=== PATIENT | male | born 1970 | race Caucasian/White ===

== ENCOUNTER 2018-07-12 01:36 | Day surgery (SDC) | payer OTHER | END 2018-07-12 22:38 | disposition home or self-care (01) | LOC: WOUND 01:36 | DX: L97.822 Non-pressure chronic ulcer of other part of left lower leg with fat layer exposed (principal); I87.2 Venous insufficiency (chronic) (peripheral); I10 Essential (primary) hypertension; E66.9 Obesity, unspecified ==

== ENCOUNTER 2018-07-14 00:21 | Day surgery (SDC) | payer OTHER | END 2018-07-14 22:49 | disposition home or self-care (01) | LOC: WOUND 00:21 | PROC: 2W1RX6Z Compression of Left Lower Leg using Pressure Dressing (ICD-10-PCS; principal; 2018-07-14) | DX: L97.822 Non-pressure chronic ulcer of other part of left lower leg with fat layer exposed (principal); I87.2 Venous insufficiency (chronic) (peripheral); I82.492 Acute embolism and thrombosis of other specified deep vein of left lower extremity ==

== ENCOUNTER 2018-07-19 00:17 | Day surgery (SDC) | payer OTHER | END 2018-07-19 22:43 | disposition home or self-care (01) | LOC: WOUND 00:17 | DX: L97.822 Non-pressure chronic ulcer of other part of left lower leg with fat layer exposed (principal); I87.2 Venous insufficiency (chronic) (peripheral); I10 Essential (primary) hypertension | CPT/HCPCS: G0463 ==

== ENCOUNTER 2018-08-02 10:00 | Day surgery (SDC) | payer OTHER | END 2018-08-02 22:39 | disposition home or self-care (01) | LOC: WOUND 10:00 | DX: L97.822 Non-pressure chronic ulcer of other part of left lower leg with fat layer exposed (principal); I87.2 Venous insufficiency (chronic) (peripheral); I82.492 Acute embolism and thrombosis of other specified deep vein of left lower extremity; I10 Essential (primary) hypertension; E66.9 Obesity, unspecified | CPT/HCPCS: G0463 ==

== ENCOUNTER 2018-08-09 09:55 | Day surgery (SDC) | payer OTHER | END 2018-08-09 23:00 | disposition home or self-care (01) | LOC: WOUND 09:55 | DX: L97.822 Non-pressure chronic ulcer of other part of left lower leg with fat layer exposed (principal); I87.2 Venous insufficiency (chronic) (peripheral); I82.492 Acute embolism and thrombosis of other specified deep vein of left lower extremity; E66.9 Obesity, unspecified; I10 Essential (primary) hypertension ==

== ENCOUNTER 2018-08-16 10:01 | Day surgery (SDC) | payer OTHER | END 2018-08-16 22:41 | disposition home or self-care (01) | LOC: WOUND 10:01 | PROC: 0HBLXZZ Excision of Left Lower Leg Skin, External Approach (ICD-10-PCS; principal; 2018-08-16) | DX: L97.822 Non-pressure chronic ulcer of other part of left lower leg with fat layer exposed (principal); I87.2 Venous insufficiency (chronic) (peripheral) ==

== ENCOUNTER 2018-08-23 10:04 | Day surgery (SDC) | payer OTHER | END 2018-08-23 22:51 | disposition home or self-care (01) | LOC: WOUND 10:04 | DX: L97.822 Non-pressure chronic ulcer of other part of left lower leg with fat layer exposed (principal); I87.2 Venous insufficiency (chronic) (peripheral); I82.492 Acute embolism and thrombosis of other specified deep vein of left lower extremity; I10 Essential (primary) hypertension; E66.9 Obesity, unspecified; Z87.891 Personal history of nicotine dependence ==

== ENCOUNTER 2018-08-31 13:44 | Day surgery (SDC) | payer OTHER | END 2018-08-31 22:42 | disposition home or self-care (01) | LOC: WOUND 13:44 | PROC: 0HBLXZZ Excision of Left Lower Leg Skin, External Approach (ICD-10-PCS; principal; 2018-08-31) | DX: L97.822 Non-pressure chronic ulcer of other part of left lower leg with fat layer exposed (principal); I87.2 Venous insufficiency (chronic) (peripheral) ==

== ENCOUNTER 2018-09-13 00:30 | Day surgery (SDC) | payer OTHER | END 2018-09-13 23:00 | disposition home or self-care (01) | LOC: WOUND 00:30 | DX: L97.822 Non-pressure chronic ulcer of other part of left lower leg with fat layer exposed (principal); I87.2 Venous insufficiency (chronic) (peripheral); I82.492 Acute embolism and thrombosis of other specified deep vein of left lower extremity; I10 Essential (primary) hypertension; E66.9 Obesity, unspecified ==

== ENCOUNTER 2018-09-15 10:45 | Day surgery (SDC) | payer OTHER | END 2018-09-15 22:38 | disposition home or self-care (01) | LOC: WOUND 10:45 | DX: L97.822 Non-pressure chronic ulcer of other part of left lower leg with fat layer exposed (principal); I87.2 Venous insufficiency (chronic) (peripheral); I82.492 Acute embolism and thrombosis of other specified deep vein of left lower extremity; I10 Essential (primary) hypertension; E66.9 Obesity, unspecified ==

== ENCOUNTER 2018-10-04 00:47 | Day surgery (SDC) | payer OTHER | END 2018-10-04 22:50 | disposition home or self-care (01) | LOC: WOUND 00:47 | DX: L97.822 Non-pressure chronic ulcer of other part of left lower leg with fat layer exposed (principal); I87.2 Venous insufficiency (chronic) (peripheral); I82.492 Acute embolism and thrombosis of other specified deep vein of left lower extremity; I10 Essential (primary) hypertension; E66.9 Obesity, unspecified ==

== ENCOUNTER 2018-10-11 10:22 | Day surgery (SDC) | payer OTHER | END 2018-10-11 22:40 | disposition home or self-care (01) | LOC: WOUND 10:22 | DX: L97.822 Non-pressure chronic ulcer of other part of left lower leg with fat layer exposed (principal); I82.492 Acute embolism and thrombosis of other specified deep vein of left lower extremity; I87.2 Venous insufficiency (chronic) (peripheral); I10 Essential (primary) hypertension; E66.9 Obesity, unspecified; Z87.891 Personal history of nicotine dependence | CPT/HCPCS: G0463 ==

== ENCOUNTER 2018-10-14 00:28 | Day surgery (SDC) | payer OTHER | END 2018-10-14 12:00 | disposition home or self-care (01) | LOC: WOUND 00:28 | DX: L97.822 Non-pressure chronic ulcer of other part of left lower leg with fat layer exposed (principal); I87.2 Venous insufficiency (chronic) (peripheral); I82.492 Acute embolism and thrombosis of other specified deep vein of left lower extremity; I10 Essential (primary) hypertension; E66.9 Obesity, unspecified; F17.210 Nicotine dependence, cigarettes, uncomplicated; Z68.42 Body mass index [BMI] 45.0-49.9, adult | CPT/HCPCS: G0463 ==

== ENCOUNTER 2018-10-18 10:30 | Day surgery (SDC) | payer OTHER | END 2018-10-18 22:47 | disposition home or self-care (01) | LOC: WOUND 10:30 | DX: L97.822 Non-pressure chronic ulcer of other part of left lower leg with fat layer exposed (principal); I87.2 Venous insufficiency (chronic) (peripheral); I82.492 Acute embolism and thrombosis of other specified deep vein of left lower extremity; I10 Essential (primary) hypertension | CPT/HCPCS: G0463 ==

== ENCOUNTER 2018-10-25 00:12 | Day surgery (SDC) | payer OTHER | END 2018-10-25 23:05 | disposition home or self-care (01) | LOC: WOUND 00:12 | DX: I87.2 Venous insufficiency (chronic) (peripheral) (principal); L97.822 Non-pressure chronic ulcer of other part of left lower leg with fat layer exposed; I82.492 Acute embolism and thrombosis of other specified deep vein of left lower extremity; I10 Essential (primary) hypertension; E66.9 Obesity, unspecified; Z87.891 Personal history of nicotine dependence; Z79.899 Other long term (current) drug therapy; Z68.42 Body mass index [BMI] 45.0-49.9, adult | CPT/HCPCS: G0463 ==

== ENCOUNTER 2018-11-01 00:19 | Day surgery (SDC) | payer OTHER | END 2018-11-01 22:45 | disposition home or self-care (01) | LOC: WOUND 00:19 | DX: L97.822 Non-pressure chronic ulcer of other part of left lower leg with fat layer exposed (principal); I82.492 Acute embolism and thrombosis of other specified deep vein of left lower extremity; I87.2 Venous insufficiency (chronic) (peripheral); I10 Essential (primary) hypertension; E66.9 Obesity, unspecified; Z87.891 Personal history of nicotine dependence; Z79.899 Other long term (current) drug therapy; Z68.42 Body mass index [BMI] 45.0-49.9, adult | CPT/HCPCS: G0463 ==

== ENCOUNTER 2018-11-08 10:20 | Day surgery (SDC) | payer OTHER | END 2018-11-08 22:45 | disposition home or self-care (01) | LOC: WOUND 10:20 | DX: I87.2 Venous insufficiency (chronic) (peripheral) (principal); L97.822 Non-pressure chronic ulcer of other part of left lower leg with fat layer exposed; I10 Essential (primary) hypertension; E66.9 Obesity, unspecified; Z87.891 Personal history of nicotine dependence; Z68.42 Body mass index [BMI] 45.0-49.9, adult | CPT/HCPCS: G0463 ==

== ENCOUNTER 2018-11-22 10:15 | Day surgery (SDC) | payer OTHER | END 2018-11-22 23:04 | disposition home or self-care (01) | LOC: WOUND 10:15 | DX: I87.2 Venous insufficiency (chronic) (peripheral) (principal); L97.221 Non-pressure chronic ulcer of left calf limited to breakdown of skin; L97.821 Non-pressure chronic ulcer of other part of left lower leg limited to breakdown of skin; I82.492 Acute embolism and thrombosis of other specified deep vein of left lower extremity; I10 Essential (primary) hypertension; E66.9 Obesity, unspecified; Z87.891 Personal history of nicotine dependence; Z86.718 Personal history of other venous thrombosis and embolism; Z68.41 Body mass index [BMI] 40.0-44.9, adult ==

== ENCOUNTER 2018-11-29 10:24 | Day surgery (SDC) | payer OTHER | END 2018-11-29 22:41 | disposition home or self-care (01) | LOC: WOUND 10:24 | DX: L97.821 Non-pressure chronic ulcer of other part of left lower leg limited to breakdown of skin (principal); I87.2 Venous insufficiency (chronic) (peripheral); I82.492 Acute embolism and thrombosis of other specified deep vein of left lower extremity; I10 Essential (primary) hypertension ==

== ENCOUNTER 2018-12-06 00:15 | Day surgery (SDC) | payer OTHER | END 2018-12-06 22:48 | disposition home or self-care (01) | LOC: WOUND 00:15 | DX: L97.821 Non-pressure chronic ulcer of other part of left lower leg limited to breakdown of skin (principal); I10 Essential (primary) hypertension; I87.2 Venous insufficiency (chronic) (peripheral); I82.492 Acute embolism and thrombosis of other specified deep vein of left lower extremity ==

== ENCOUNTER 2018-12-13 07:47 | Day surgery (SDC) | payer OTHER | END 2018-12-13 22:38 | disposition home or self-care (01) | LOC: WOUND 07:47 | DX: L97.822 Non-pressure chronic ulcer of other part of left lower leg with fat layer exposed (principal); I87.2 Venous insufficiency (chronic) (peripheral); I82.492 Acute embolism and thrombosis of other specified deep vein of left lower extremity; I10 Essential (primary) hypertension; E66.9 Obesity, unspecified; Z87.891 Personal history of nicotine dependence ==

== ENCOUNTER 2018-12-27 01:34 | Day surgery (SDC) | payer OTHER | END 2018-12-27 22:38 | disposition home or self-care (01) | LOC: WOUND 01:34 | DX: L97.821 Non-pressure chronic ulcer of other part of left lower leg limited to breakdown of skin (principal); I87.2 Venous insufficiency (chronic) (peripheral); I82.492 Acute embolism and thrombosis of other specified deep vein of left lower extremity; E66.9 Obesity, unspecified; Z87.891 Personal history of nicotine dependence ==

== ENCOUNTER 2019-01-10 10:19 | Day surgery (SDC) | payer OTHER ==
[2019-03-25] MEDS ORDERED: XARELTO20 MG PO (13:27)
== END 2019-01-10 23:09 | disposition home or self-care (01) ==
LOC: WOUND 10:19
DX: L97.821 Non-pressure chronic ulcer of other part of left lower leg limited to breakdown of skin (principal); I10 Essential (primary) hypertension; E66.9 Obesity, unspecified; I87.2 Venous insufficiency (chronic) (peripheral); Z87.891 Personal history of nicotine dependence
CPT/HCPCS: 87070; 87075; 87205

== ENCOUNTER 2019-01-17 10:22 | Day surgery (SDC) | payer OTHER ==
[2019-03-25] MEDS ORDERED: XARELTO20 MG PO (13:27)
== END 2019-01-17 22:38 | disposition home or self-care (01) ==
LOC: WOUND 10:22
DX: L97.821 Non-pressure chronic ulcer of other part of left lower leg limited to breakdown of skin (principal); I87.2 Venous insufficiency (chronic) (peripheral); I82.492 Acute embolism and thrombosis of other specified deep vein of left lower extremity; I10 Essential (primary) hypertension; E66.9 Obesity, unspecified; Z87.891 Personal history of nicotine dependence

== ENCOUNTER 2019-01-24 10:19 | Day surgery (SDC) | payer OTHER ==
[2019-03-25] MEDS ORDERED: XARELTO20 MG PO (13:27)
== END 2019-01-24 22:46 | disposition home or self-care (01) ==
LOC: WOUND
PROC: 0HDLXZZ Extraction of Left Lower Leg Skin, External Approach (ICD-10-PCS; principal; 2019-01-24)
DX: L97.821 Non-pressure chronic ulcer of other part of left lower leg limited to breakdown of skin (principal); I87.2 Venous insufficiency (chronic) (peripheral); I10 Essential (primary) hypertension; E66.9 Obesity, unspecified; Z87.891 Personal history of nicotine dependence; Z86.718 Personal history of other venous thrombosis and embolism

== ENCOUNTER 2019-01-31 10:17 | Day surgery (SDC) | payer OTHER ==
[2019-03-25] MEDS ORDERED: XARELTO20 MG PO (13:27)
== END 2019-01-31 22:59 | disposition home or self-care (01) ==
LOC: WOUND 10:17
PROC: 0HDLXZZ Extraction of Left Lower Leg Skin, External Approach (ICD-10-PCS; principal; 2019-01-31)
DX: L97.821 Non-pressure chronic ulcer of other part of left lower leg limited to breakdown of skin (principal); I82.492 Acute embolism and thrombosis of other specified deep vein of left lower extremity; I10 Essential (primary) hypertension; E66.9 Obesity, unspecified; Z87.891 Personal history of nicotine dependence; Z86.14 Personal history of Methicillin resistant Staphylococcus aureus infection

== ENCOUNTER 2019-02-07 10:19 | Day surgery (SDC) | payer OTHER ==
[2019-03-25] MEDS ORDERED: XARELTO20 MG PO (13:27)
== END 2019-02-07 22:41 | disposition home or self-care (01) ==
LOC: WOUND 10:19
DX: L97.822 Non-pressure chronic ulcer of other part of left lower leg with fat layer exposed (principal); I82.492 Acute embolism and thrombosis of other specified deep vein of left lower extremity; I87.2 Venous insufficiency (chronic) (peripheral); I10 Essential (primary) hypertension; E66.9 Obesity, unspecified; Z87.891 Personal history of nicotine dependence; Z68.42 Body mass index [BMI] 45.0-49.9, adult

== ENCOUNTER 2019-02-14 10:23 | Day surgery (SDC) | payer OTHER ==
[2019-03-25] MEDS ORDERED: XARELTO20 MG PO (13:27)
== END 2019-02-14 22:51 | disposition home or self-care (01) ==
LOC: WOUND 10:23
DX: L97.822 Non-pressure chronic ulcer of other part of left lower leg with fat layer exposed (principal); I10 Essential (primary) hypertension; I87.2 Venous insufficiency (chronic) (peripheral); I82.492 Acute embolism and thrombosis of other specified deep vein of left lower extremity; E66.9 Obesity, unspecified; Z87.891 Personal history of nicotine dependence; Z68.42 Body mass index [BMI] 45.0-49.9, adult
CPT/HCPCS: 87081; G0463

== ENCOUNTER 2019-02-21 10:30 | Day surgery (SDC) | payer OTHER ==
[2019-03-25] MEDS ORDERED: XARELTO20 MG PO (13:27)
== END 2019-02-21 22:57 | disposition home or self-care (01) ==
LOC: WOUND 10:30
DX: L97.821 Non-pressure chronic ulcer of other part of left lower leg limited to breakdown of skin (principal); I87.2 Venous insufficiency (chronic) (peripheral); I82.492 Acute embolism and thrombosis of other specified deep vein of left lower extremity; I10 Essential (primary) hypertension; E66.9 Obesity, unspecified; Z87.891 Personal history of nicotine dependence

== ENCOUNTER 2019-02-28 00:23 | Day surgery (SDC) | payer OTHER ==
[2019-03-25] MEDS ORDERED: XARELTO20 MG PO (13:27)
== END 2019-02-28 23:10 | disposition home or self-care (01) ==
LOC: WOUND 00:23
DX: L97.222 Non-pressure chronic ulcer of left calf with fat layer exposed (principal); I82.492 Acute embolism and thrombosis of other specified deep vein of left lower extremity; I87.2 Venous insufficiency (chronic) (peripheral); I10 Essential (primary) hypertension; E66.9 Obesity, unspecified; Z87.891 Personal history of nicotine dependence
CPT/HCPCS: G0463

== ENCOUNTER 2019-03-07 00:13 | Day surgery (SDC) | payer OTHER ==
[2019-03-25] MEDS ORDERED: XARELTO20 MG PO (13:27)
== END 2019-03-07 22:46 | disposition home or self-care (01) ==
LOC: WOUND 00:13
DX: L97.822 Non-pressure chronic ulcer of other part of left lower leg with fat layer exposed (principal); L97.811 Non-pressure chronic ulcer of other part of right lower leg limited to breakdown of skin; I82.492 Acute embolism and thrombosis of other specified deep vein of left lower extremity; I87.2 Venous insufficiency (chronic) (peripheral); I10 Essential (primary) hypertension; E66.9 Obesity, unspecified; Z87.891 Personal history of nicotine dependence
CPT/HCPCS: G0463

== ENCOUNTER 2019-03-14 00:24 | Day surgery (SDC) | payer OTHER ==
[2019-03-25] MEDS ORDERED: XARELTO20 MG PO (13:27)
== END 2019-03-14 22:50 | disposition home or self-care (01) ==
LOC: WOUND 00:24
DX: L97.822 Non-pressure chronic ulcer of other part of left lower leg with fat layer exposed (principal); L97.811 Non-pressure chronic ulcer of other part of right lower leg limited to breakdown of skin; I87.2 Venous insufficiency (chronic) (peripheral); I82.492 Acute embolism and thrombosis of other specified deep vein of left lower extremity; I10 Essential (primary) hypertension; E66.9 Obesity, unspecified; Z87.891 Personal history of nicotine dependence
CPT/HCPCS: 87071; 87075; 87205; G0463

== ENCOUNTER 2019-03-21 00:25 | Day surgery (SDC) | payer OTHER ==
[2019-03-25] MEDS ORDERED: XARELTO20 MG PO (13:27)
== END 2019-03-21 22:44 | disposition home or self-care (01) ==
LOC: WOUND 00:25
DX: L97.822 Non-pressure chronic ulcer of other part of left lower leg with fat layer exposed (principal); L97.811 Non-pressure chronic ulcer of other part of right lower leg limited to breakdown of skin; I82.492 Acute embolism and thrombosis of other specified deep vein of left lower extremity; I87.2 Venous insufficiency (chronic) (peripheral); I10 Essential (primary) hypertension; F17.210 Nicotine dependence, cigarettes, uncomplicated
CPT/HCPCS: G0463

== ENCOUNTER 2019-03-23 13:14 | Day surgery (SDC) | payer OTHER ==
[~2019-03-23] VITALS: Ht 188 cm; Wt 168.0 kg
[2019-03-23] MEDS ORDERED: LISI20 PO (15:12)
[2019-03-23] MEDS ORDERED: NEBI10 PO ×2 (15:13→15:14)
[2019-03-23] MEDS ORDERED: CHLO25B PO (15:15)
[2019-03-23] MEDS ORDERED: THERA1 EACH PO (15:16)
[2019-03-23] MEDS ORDERED: Bactrim Ds Tab1 EACH PO (15:16)
[2019-03-25] MEDS ORDERED: XARELTO20 MG PO (13:27)
== END 2019-03-23 22:40 | disposition home or self-care (01) ==
LOC: MHTC 13:14
DX: L97.829 Non-pressure chronic ulcer of other part of left lower leg with unspecified severity (principal); I87.2 Venous insufficiency (chronic) (peripheral)
CPT/HCPCS: 36470; 36471; 36475; 99152; 99153; C1769; C1888; C1894; J1644; J2250; J3010; J7040

== ENCOUNTER 2019-03-29 07:01 | Day surgery (SDC) | payer OTHER ==
[~2019-03-29] VITALS: Ht 188 cm; Wt 164.0 kg
[~2019-03-29 07:01] MED LIST: Bactrim Ds Tab1 EACH PO; CHLO25B PO; LISI20 PO; NEBI10 PO; THERA1 EACH PO; XARELTO20 MG PO
--- NOTE | 2019-03-29 07:36 | NUR ---
CALL LIGHT IN REACH.
--- NOTE | 2019-03-29 08:37 | NUR ---
PT TOLERATED WELL. RF CYCLES COMPLETED AT 119 DEGREES, 8 KAUR. TOTAL TX TIME: 4:00 12 RF CYCLES.
--- NOTE | 2019-03-29 09:07 | NUR ---
RIGHT LEG WRAPPED TO THIGH-HIGH WITH GAUZE, COBAN AND COMPRESSION STOCKING. PT DRINKING ORANGE JUICE.
--- NOTE | 2019-03-29 09:19 | NUR ---
DISCHARGE INSTRUCTIONS REVIEWED ALL QUESTIONS ANSWERED. 23 G IV DISCONTINUED FROM RIGHT HAND WITH INTACT CANNULA. PT ESCORTED OUT VIA WHEELCHAIR ESCORT.
== END 2019-03-29 22:43 | disposition home or self-care (01) ==
LOC: MHTC 07:01
DX: I87.2 Venous insufficiency (chronic) (peripheral) (principal); I83.019 Varicose veins of right lower extremity with ulcer of unspecified site; L97.919 Non-pressure chronic ulcer of unspecified part of right lower leg with unspecified severity
CPT/HCPCS: 36465; 36466; 36475; 99152; C1888; C1894; J1644; J2250; J3010; J7030; J7040

== ENCOUNTER 2019-04-11 00:15 | Day surgery (SDC) | payer OTHER | END 2019-04-11 22:53 | disposition home or self-care (01) | LOC: WOUND 00:15 | DX: I82.492 Acute embolism and thrombosis of other specified deep vein of left lower extremity (principal); L97.822 Non-pressure chronic ulcer of other part of left lower leg with fat layer exposed; L97.811 Non-pressure chronic ulcer of other part of right lower leg limited to breakdown of skin; I87.2 Venous insufficiency (chronic) (peripheral); I10 Essential (primary) hypertension; Z87.891 Personal history of nicotine dependence | CPT/HCPCS: G0463 ==

== ENCOUNTER 2019-04-18 10:20 | Day surgery (SDC) | payer OTHER | END 2019-04-18 23:07 | disposition home or self-care (01) | LOC: WOUND 10:20 | DX: L97.821 Non-pressure chronic ulcer of other part of left lower leg limited to breakdown of skin (principal); L97.811 Non-pressure chronic ulcer of other part of right lower leg limited to breakdown of skin; I10 Essential (primary) hypertension; E66.9 Obesity, unspecified; Z68.42 Body mass index [BMI] 45.0-49.9, adult; Z87.891 Personal history of nicotine dependence ==

== ENCOUNTER 2019-04-25 00:25 | Day surgery (SDC) | payer OTHER | END 2019-04-25 23:01 | disposition home or self-care (01) | LOC: WOUND 00:25 | DX: L97.821 Non-pressure chronic ulcer of other part of left lower leg limited to breakdown of skin (principal); L97.811 Non-pressure chronic ulcer of other part of right lower leg limited to breakdown of skin; I87.2 Venous insufficiency (chronic) (peripheral); I82.492 Acute embolism and thrombosis of other specified deep vein of left lower extremity; I10 Essential (primary) hypertension; E66.9 Obesity, unspecified; Z87.891 Personal history of nicotine dependence; Z68.42 Body mass index [BMI] 45.0-49.9, adult ==

== ENCOUNTER 2019-05-02 00:19 | Day surgery (SDC) | payer OTHER | END 2019-05-02 22:43 | disposition home or self-care (01) | LOC: WOUND 00:19 | DX: L97.821 Non-pressure chronic ulcer of other part of left lower leg limited to breakdown of skin (principal); L97.811 Non-pressure chronic ulcer of other part of right lower leg limited to breakdown of skin; I87.2 Venous insufficiency (chronic) (peripheral); I82.492 Acute embolism and thrombosis of other specified deep vein of left lower extremity; I10 Essential (primary) hypertension; E66.9 Obesity, unspecified; Z68.42 Body mass index [BMI] 45.0-49.9, adult; Z87.891 Personal history of nicotine dependence ==

== ENCOUNTER 2019-05-09 10:21 | Day surgery (SDC) | payer OTHER | END 2019-05-09 23:19 | disposition home or self-care (01) | LOC: WOUND 10:21 | DX: L97.822 Non-pressure chronic ulcer of other part of left lower leg with fat layer exposed (principal); L97.821 Non-pressure chronic ulcer of other part of left lower leg limited to breakdown of skin; L97.811 Non-pressure chronic ulcer of other part of right lower leg limited to breakdown of skin; I87.2 Venous insufficiency (chronic) (peripheral); I82.492 Acute embolism and thrombosis of other specified deep vein of left lower extremity; I10 Essential (primary) hypertension; E66.9 Obesity, unspecified; Z87.891 Personal history of nicotine dependence; Z68.42 Body mass index [BMI] 45.0-49.9, adult ==

== ENCOUNTER 2019-05-16 10:00 | Day surgery (SDC) | payer OTHER | END 2019-05-16 12:00 | disposition home or self-care (01) | LOC: WOUND 10:00 | DX: L97.822 Non-pressure chronic ulcer of other part of left lower leg with fat layer exposed (principal); L97.811 Non-pressure chronic ulcer of other part of right lower leg limited to breakdown of skin; I87.2 Venous insufficiency (chronic) (peripheral); I82.492 Acute embolism and thrombosis of other specified deep vein of left lower extremity; I10 Essential (primary) hypertension; E66.9 Obesity, unspecified; Z87.891 Personal history of nicotine dependence; Z68.42 Body mass index [BMI] 45.0-49.9, adult; Z79.899 Other long term (current) drug therapy ==

== ENCOUNTER 2019-05-23 00:26 | Day surgery (SDC) | payer OTHER | END 2019-05-23 22:45 | disposition home or self-care (01) | LOC: WOUND 00:26 | DX: L97.822 Non-pressure chronic ulcer of other part of left lower leg with fat layer exposed (principal); L97.812 Non-pressure chronic ulcer of other part of right lower leg with fat layer exposed; I87.2 Venous insufficiency (chronic) (peripheral); I82.492 Acute embolism and thrombosis of other specified deep vein of left lower extremity; I10 Essential (primary) hypertension; F17.210 Nicotine dependence, cigarettes, uncomplicated ==

== ENCOUNTER 2019-06-01 13:30 | Day surgery (SDC) | payer OTHER | END 2019-06-01 23:02 | disposition home or self-care (01) | LOC: WOUND 13:30 | DX: L97.822 Non-pressure chronic ulcer of other part of left lower leg with fat layer exposed (principal); L97.812 Non-pressure chronic ulcer of other part of right lower leg with fat layer exposed; I10 Essential (primary) hypertension; I82.492 Acute embolism and thrombosis of other specified deep vein of left lower extremity; I87.2 Venous insufficiency (chronic) (peripheral); Z87.891 Personal history of nicotine dependence | CPT/HCPCS: Q4186 ==

== ENCOUNTER 2019-06-06 10:04 | Day surgery (SDC) | payer OTHER | END 2019-06-06 22:41 | disposition home or self-care (01) | LOC: WOUND 10:04 | DX: L97.822 Non-pressure chronic ulcer of other part of left lower leg with fat layer exposed (principal); L97.811 Non-pressure chronic ulcer of other part of right lower leg limited to breakdown of skin; I87.2 Venous insufficiency (chronic) (peripheral); I82.492 Acute embolism and thrombosis of other specified deep vein of left lower extremity; I10 Essential (primary) hypertension; E66.9 Obesity, unspecified; Z87.891 Personal history of nicotine dependence; Z68.42 Body mass index [BMI] 45.0-49.9, adult; Z79.899 Other long term (current) drug therapy ==

== ENCOUNTER 2019-06-13 00:15 | Day surgery (SDC) | payer OTHER | END 2019-06-13 22:54 | disposition home or self-care (01) | LOC: WOUND 00:15 | DX: I96 Gangrene, not elsewhere classified (principal); L97.822 Non-pressure chronic ulcer of other part of left lower leg with fat layer exposed; L97.812 Non-pressure chronic ulcer of other part of right lower leg with fat layer exposed; I10 Essential (primary) hypertension; I87.2 Venous insufficiency (chronic) (peripheral); I82.492 Acute embolism and thrombosis of other specified deep vein of left lower extremity; E66.9 Obesity, unspecified; Z68.42 Body mass index [BMI] 45.0-49.9, adult ==

== ENCOUNTER 2019-06-20 10:09 | Day surgery (SDC) | payer OTHER | END 2019-06-20 23:12 | disposition home or self-care (01) | LOC: WOUND 10:09 | DX: L97.822 Non-pressure chronic ulcer of other part of left lower leg with fat layer exposed (principal); L97.811 Non-pressure chronic ulcer of other part of right lower leg limited to breakdown of skin; I87.2 Venous insufficiency (chronic) (peripheral); I82.492 Acute embolism and thrombosis of other specified deep vein of left lower extremity; I10 Essential (primary) hypertension; E66.9 Obesity, unspecified; Z87.891 Personal history of nicotine dependence; Z68.42 Body mass index [BMI] 45.0-49.9, adult; Z79.899 Other long term (current) drug therapy ==

== ENCOUNTER 2019-06-27 10:15 | Day surgery (SDC) | payer OTHER | END 2019-06-27 23:02 | disposition home or self-care (01) | LOC: WOUND 10:15 | DX: I96 Gangrene, not elsewhere classified (principal); L97.822 Non-pressure chronic ulcer of other part of left lower leg with fat layer exposed; L97.811 Non-pressure chronic ulcer of other part of right lower leg limited to breakdown of skin; I87.2 Venous insufficiency (chronic) (peripheral); I10 Essential (primary) hypertension; E66.9 Obesity, unspecified; Z68.42 Body mass index [BMI] 45.0-49.9, adult; Z87.891 Personal history of nicotine dependence; Z79.01 Long term (current) use of anticoagulants; Z79.899 Other long term (current) drug therapy ==

== ENCOUNTER 2019-07-04 10:01 | Day surgery (SDC) | payer OTHER | END 2019-07-04 22:38 | disposition home or self-care (01) | LOC: WOUND 10:01 | DX: L97.821 Non-pressure chronic ulcer of other part of left lower leg limited to breakdown of skin (principal); I87.2 Venous insufficiency (chronic) (peripheral); I82.492 Acute embolism and thrombosis of other specified deep vein of left lower extremity; I10 Essential (primary) hypertension; E66.9 Obesity, unspecified; Z68.42 Body mass index [BMI] 45.0-49.9, adult; Z87.891 Personal history of nicotine dependence; Z79.899 Other long term (current) drug therapy | CPT/HCPCS: Q4186 ==

== ENCOUNTER 2019-07-11 09:57 | Day surgery (SDC) | payer OTHER | END 2019-07-11 22:37 | disposition home or self-care (01) | LOC: WOUND 09:57 | DX: I96 Gangrene, not elsewhere classified (principal); L97.821 Non-pressure chronic ulcer of other part of left lower leg limited to breakdown of skin; L97.521 Non-pressure chronic ulcer of other part of left foot limited to breakdown of skin; I87.2 Venous insufficiency (chronic) (peripheral); I82.492 Acute embolism and thrombosis of other specified deep vein of left lower extremity; I10 Essential (primary) hypertension; E66.9 Obesity, unspecified; Z68.42 Body mass index [BMI] 45.0-49.9, adult; Z87.891 Personal history of nicotine dependence; Z79.899 Other long term (current) drug therapy ==

== ENCOUNTER 2019-07-14 15:30 | Day surgery (SDC) | payer OTHER | END 2019-07-14 23:04 | disposition home or self-care (01) | LOC: WOUND 15:30 | DX: L97.822 Non-pressure chronic ulcer of other part of left lower leg with fat layer exposed (principal); I87.2 Venous insufficiency (chronic) (peripheral); I82.492 Acute embolism and thrombosis of other specified deep vein of left lower extremity; I10 Essential (primary) hypertension; E66.9 Obesity, unspecified; Z79.01 Long term (current) use of anticoagulants; Z79.899 Other long term (current) drug therapy; Z87.891 Personal history of nicotine dependence ==

== ENCOUNTER 2019-07-18 10:08 | Day surgery (SDC) | payer OTHER | END 2019-07-18 22:54 | disposition home or self-care (01) | LOC: WOUND 10:08 | DX: L97.822 Non-pressure chronic ulcer of other part of left lower leg with fat layer exposed (principal); I87.2 Venous insufficiency (chronic) (peripheral); I82.492 Acute embolism and thrombosis of other specified deep vein of left lower extremity; I10 Essential (primary) hypertension; E66.9 Obesity, unspecified; Z87.891 Personal history of nicotine dependence; Z68.42 Body mass index [BMI] 45.0-49.9, adult; Z79.899 Other long term (current) drug therapy ==

== ENCOUNTER 2019-07-25 10:11 | Day surgery (SDC) | payer OTHER | END 2019-07-25 22:52 | disposition home or self-care (01) | LOC: WOUND 10:11 | DX: L97.822 Non-pressure chronic ulcer of other part of left lower leg with fat layer exposed (principal); I87.2 Venous insufficiency (chronic) (peripheral); I82.492 Acute embolism and thrombosis of other specified deep vein of left lower extremity; I10 Essential (primary) hypertension; E66.9 Obesity, unspecified; Z87.891 Personal history of nicotine dependence; Z68.42 Body mass index [BMI] 45.0-49.9, adult; Z79.899 Other long term (current) drug therapy | CPT/HCPCS: Q4186 ==

== ENCOUNTER 2019-08-01 10:01 | Day surgery (SDC) | payer OTHER | END 2019-08-01 22:41 | disposition home or self-care (01) | LOC: WOUND 10:01 | DX: L97.821 Non-pressure chronic ulcer of other part of left lower leg limited to breakdown of skin (principal); I87.2 Venous insufficiency (chronic) (peripheral); I82.492 Acute embolism and thrombosis of other specified deep vein of left lower extremity; I10 Essential (primary) hypertension; Z79.899 Other long term (current) drug therapy ==

== ENCOUNTER 2019-08-08 10:14 | Day surgery (SDC) | payer OTHER | END 2019-08-08 22:41 | disposition home or self-care (01) | LOC: WOUND 10:14 | DX: L97.821 Non-pressure chronic ulcer of other part of left lower leg limited to breakdown of skin (principal); I10 Essential (primary) hypertension; I87.2 Venous insufficiency (chronic) (peripheral); I82.492 Acute embolism and thrombosis of other specified deep vein of left lower extremity; E66.9 Obesity, unspecified; Z68.42 Body mass index [BMI] 45.0-49.9, adult; Z79.899 Other long term (current) drug therapy; Z87.891 Personal history of nicotine dependence | CPT/HCPCS: G0463 ==

== ENCOUNTER 2019-08-22 00:15 | Day surgery (SDC) | payer OTHER | END 2019-08-22 23:03 | disposition home or self-care (01) | LOC: WOUND 00:15 | DX: L97.822 Non-pressure chronic ulcer of other part of left lower leg with fat layer exposed (principal); I87.2 Venous insufficiency (chronic) (peripheral); I82.492 Acute embolism and thrombosis of other specified deep vein of left lower extremity; I10 Essential (primary) hypertension; E66.9 Obesity, unspecified; Z87.891 Personal history of nicotine dependence; Z68.42 Body mass index [BMI] 45.0-49.9, adult; Z79.899 Other long term (current) drug therapy | CPT/HCPCS: G0463 ==